=== PATIENT | male | born 1975 | race Caucasian/White ===

== ENCOUNTER 2018-04-30 14:22 | Observation (INO) | payer SELFPAY ==
[2018-04-30] MEDS ORDERED: NA CHLORIDE 0.9% 1,000 ML ONE (14:33)
[2018-04-30] MEDS ORDERED: TETANUS & DIPHTHERIA TOX,ADULT 0.5 ML VIAL ONE (14:33)
[2018-04-30] MEDS ORDERED: CEFAZOLIN/SWI 2gm 2 GM/20 ML SYR IVP ONE (14:45)
[2018-04-30 14:53] LABS: Absolute Lymphocytes (CBC) 4.1 K/uL (0.7-4.9); Absolute Neutrophil 6.8 K/uL (1.8-8.0); Basophils % 0.9 % (0-1.3); Eosinophils % 4.4 % (0-4.4); Hematocrit 42.6 % (39.6-49.0); Lymphocytes % 32.5 % (15.3-44.8); MCH 32.5 pg (27.0-35.0); MCV 94.1 fL (80-100); MPV 9.1 fL (7.6-11.3); Monocytes % 8.3 % (3.3-12.3); RBC Red Blood Cell Count 4.52 M/uL (4.33-5.43)
[2018-04-30 14:54] LABS: Protime INR 0.92
[2018-04-30 14:59] LABS: ALT/SGPT 41 U/L (12-78); AST/SGOT 26 U/L (15-37); Alkaline Phosphatase 78 U/L (45-117); BUN Blood Urea Nitrogen 26 mg/dL (7-18); Bicarbonate 25 mmol/L (21-32); Bilirubin Direct 0.1 mg/dL (0-0.2); Bilirubin Total 0.4 mg/dL (0.2-1.0); CKMB Creatine Kinase MB 1.3 ng/mL (0.3-3.6); Creatine Phosphokinase 117 U/L (39-308); Glucose Level 111 mg/dL (74-106); Magnesium 2.3 mg/dL (1.8-2.4); NT PRO-BNP 63 pg/mL (<125); Potassium 4.2 mmol/L (3.5-5.1); Protein, Total 7.4 g/dL (6.4-8.2); Sodium Level 141 mmol/L (136-145); Troponin (Emerg Dept Use Only) < 0.02 ng/mL (0.0-0.045)
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
--- NOTE | 2018-04-30 15:21 | RAD REPORT ---
EXAM DESCRIPTION: RAD - Shoulder Right 2 View - 04/30/2018 3:09 pm CLINICAL HISTORY: Right shoulder pain FINDINGS: No fracture or dislocation is seen.
--- NOTE | 2018-04-30 15:23 | RAD REPORT ---
EXAM DESCRIPTION: Carlo Single View04/30/2018 3:07 pm CLINICAL HISTORY: CHEST PAIN COMPARISON: none FINDINGS: The lungs appear clear of acute infiltrate. The heart is borderline enlarged IMPRESSION: No acute abnormalities displayed
--- NOTE | 2018-04-30 15:25 | RAD REPORT ---
EXAM DESCRIPTION: RAD - Femur Left - 04/30/2018 3:16 pm CLINICAL HISTORY: Left leg pain FINDINGS: . No fracture is seen.
[2018-04-30] MEDS ORDERED: ACETAMINOPHEN 500 MG TAB PO PRN (15:29)
[2018-04-30 16:10] LABS: Urine Blood 1+ (NEG); Urine Glucose NEGATIVE (NEG); Urine Protein NEGATIVE (NEG); Urine pH 5.5 (5.0-7.0)
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
[2018-04-30 16:14] LABS: Barbiturates NEGATIVE (NEGATIVE); Benzodiazepines NEGATIVE (NEGATIVE); Cocaine NEGATIVE (NEGATIVE); METHAMPHETAM NEGATIVE (NEGATIVE); Methadone NEGATIVE (NEGATIVE); Opiates NEGATIVE (NEGATIVE); Phencyclidine NEGATIVE (NEGATIVE); THC Cannibis NEGATIVE (NEGATIVE)
--- NOTE | 2018-04-30 17:15 | RAD REPORT ---
EXAM DESCRIPTION: RAD - Facial Bones <3 Views - 04/30/2018 5:03 pm CLINICAL HISTORY: check for any glass< facial pain FINDINGS: A 6 millimeter curvilinear density overlies the subcutaneous tissues of the right face. Th is is equivocal for a foreign body
[2018-04-30] MEDS: HYDROCODONE/APAP 5/325 MG TAB PO PRN ×2 (17:27→21:23)
[2018-04-30] MEDS: Ringers Lactate 1,000 ML IV SCH (17:27)
[2018-04-30 18:13] VITALS: BMI 35.5
[2018-04-30] MEDS ORDERED: clonazePAM 1 MG TAB PO ONE (22:23)
[2018-05-01 01:55] VITALS: O2SAT 95
[2018-05-01] MEDS: HYDROCODONE/APAP 5/325 MG TAB PO PRN ×2 (03:07→11:52)
[2018-05-01] MEDS: Ringers Lactate 1,000 ML IV SCH ×2 (03:10→08:00)
[2018-05-01] MEDS ORDERED: NICOTINE 14 MG/PAT TD SCH (09:00)
[2018-05-01] MEDS ORDERED: LORazepam 2 MG/ML VIAL IV ONE (09:11)
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
--- NOTE | 2018-05-01 12:22 | EKG ---
Test Date: 2018-04-30 Test Time: 15:44:42 Strickler Attendant: SP MEASUREMENT RESULTS: Intervals: Rate: 76 AL: 156 QRSD: 96 QT: 388 QTc: 436 [place]: P: 49 AL: 156 QRS: -7 T: 52 INTERPRETIVE STATEMENTS: Normal sinus rhythm Normal ECG Compared to ECG 03/09/2015 15:25:07 No significant changes Electronically Signed On 05-01-18 12:19:17 CDT by Xavier Valles
[2018-05-01 12:45] VITALS: BP 146/78; TEMP 98.3
== END 2018-05-01 14:50 | disposition home or self-care (01) ==
LOC: ER 14:22 → ERHOLD 15:31 → 4TH 16:34
PROVIDERS: ADMIT Surgery; ATTEND Surgery
PROC: 0JQ10ZZ Repair Face Subcutaneous Tissue and Fascia, Open Approach (ICD-10-PCS; principal; 2018-04-30)
DX: S01.81XA Laceration without foreign body of other part of head, initial encounter (principal); S06.0X0A Concussion without loss of consciousness, initial encounter; M25.511 Pain in right shoulder; M79.652 Pain in left thigh; V49.40XA Driver injured in collision with unspecified motor vehicles in traffic accident, initial encounter; Y92.410 Unspecified street and highway as the place of occurrence of the external cause; Z23 Encounter for immunization; Z88.0 Allergy status to penicillin
CPT/HCPCS: 36415; 70140; 70450; 70553; 71045; 71260; 72125; 72170; 74177; 80048; 80061; 80076; 80307; 80320; 81003; 82550; 82553; 83735; 83880; 84484; 85025; 85610; 85730; 86850; 86900; 86901; 90714; 93005; 96361; 96374; 99291; 99292; A9577; G0378; J0690; J7030; Q9967

== ENCOUNTER 2018-05-09 15:24 | Emergency (ER) | payer SELFPAY ==
--- NOTE | 2018-05-09 15:51 | ER ---
Nurse's Notes [facility] Name: Ray Hardy Age: 43 yrs Sex: Male : 1975 Arrival Date: 05/09/2018 Time: 15:27 Bed 12 Private MD: Victorino Chavez T Diagnosis: Encounter for removal of sutures Presentation: 05/09 15:46 Presenting complaint: Patient states: suture removal, placed on 04/30/18. Transition of sv care: patient was not received from another setting of care. Onset of symptoms was April 30, 2018. Risk Assessment: Do you want to hurt yourself or someone else? Patient reports no desire to harm self or others. Initial Sepsis Screen: Does the patient meet any 2 criteria? No. Patient's initial sepsis screen is negative. Does the patient have a suspected source of infection? No. Patient's initial sepsis screen is negative. Care prior to arrival: None. 15:46 Method Of Arrival: Ambulatory sv 15:46 Acuity: DEEPALI 5 sv Triage Assessment: 15:47 General: Appears in no apparent distress. comfortable, well developed, Behavior is sv calm, cooperative, appropriate for age. Pain: Denies pain. EENT: No signs and/or symptoms were reported regarding the EENT system. Neuro: Level of Consciousness is awake, alert, obeys commands, Oriented to person, place, time, situation, Moves all extremities. Full function Gait is steady, Speech is normal. Respiratory: Respiratory effort is even, unlabored, Respiratory pattern is regular, symmetrical. Derm: Skin is pink, warm \T\ dry. Injury Description: Laceration sustained to right forehead is 0.5 to 2.5 cm long, not bleeding, was sustained 04/30/18 no active bleeding noted at this time. Historical: - Allergies: 15:47 Amoxicillin; sv - PMHx: 15:47 Anxiety; Depression; sv - PSHx: 15:47 left wrist; left foot; sv - Immunization history:: Adult Immunizations up to date. - Social history:: Smoking status: Patient uses tobacco products, smokes one-half pack cigarettes per day. - Ebola Screening: : No symptoms or risks identified at this time. Screenin:48 Abuse screen: Denies threats or abuse. Denies injuries from another. Nutritional sv screening: No deficits noted. Tuberculosis screening: No symptoms or risk factors identified. Fall Risk None identified. Assessment: 15:48 Reassessment: Patient appears in no apparent distress at this time. No changes from previously documented assessment. Patient and/or family updated on plan of care and expected duration. Pain level reassessed. Patient is alert, oriented x 3, equal unlabored respirations, skin warm/dry/pink. Vital Signs: 15:47 BP 130 / 78; Pulse 89; Resp 18; Temp 98.2; Pulse Ox 99% ; sv ED Course: 15:27 Patient arrived in ED. sb2 15:27 Victorino Chavez MD is Private Physician. sb2 15:42 Miladis Zeng FNP-C is [facility]. kb 15:42 Nhung Rooney MD is Attending Physician. kb 15:46 Triage completed. sv 15:47 Arm band placed on right wrist. sv 15:48 Patient has correct armband on for positive identification. sv 15:48 Patient did not have IV access during this emergency room visit. sv 15:49 Suture removal. sv Administered Medications: No medications were administered Outcome: 15:49 Discharged to home ambulatory, with family. sv 15:49 Condition: stable 15:49 No charge visit due to suture removal. 15:51 Discharge ordered by MD. kb 16:03 Patient left the ED. Signatures: Miladis Zeng FNP-C FNP-Ckb Verde, Stephanie, RN RN Nataliya Jackson RN RN Ramila Sahni sb2
--- NOTE | 2018-05-09 15:51 | EDPHYS ---
Physician Documentation [facility] Name: Ray Hardy Age: 43 yrs Sex: Male : 1975 Arrival Date: 05/09/2018 Time: 15:27 Bed 12 Private MD: Victorino Chavez T ED Physician Nhung Rooney HPI: 05/09 15:52 This 43 yrs old Male presents to ER via Ambulatory with complaints of Suture kb Removal. 15:52 The patient has sutures on the right buddhist and top of head. Previous treatment: The kb patient was initially treated on April 29, 2018, the care was rendered at [facility]. Sutures/velma progress: The patient has no c/o's. The wound is well-healing with no redness, swelling, discharge, or dehiscence reported. The patient has not experienced similar symptoms in the past. The patient has been recently seen at the [facility] Emergency Department, a couple of weeks ago. Historical: - Allergies: 15:47 Amoxicillin; sv - PMHx: 15:47 Anxiety; Depression; sv - PSHx: 15:47 left wrist; left foot; sv - Immunization history:: Adult Immunizations up to date. - Social history:: Smoking status: Patient uses tobacco products, smokes one-half pack cigarettes per day. - Ebola Screening: : No symptoms or risks identified at this time. ROS: 15:51 Constitutional: Negative for fever, chills, and weight loss, Cardiovascular: Negative kb for chest pain, palpitations, and edema, Respiratory: Negative for shortness of breath, cough, wheezing, and pleuritic chest pain, Abdomen/GI: Negative for abdominal pain, nausea, vomiting, diarrhea, and constipation, Back: Negative for injury and pain, : Negative for injury, bleeding, discharge, and swelling, MS/Extremity: Negative for injury and deformity, Neuro: Negative for headache, weakness, numbness, tingling, and seizure. 15:51 Skin: Positive for of the right buddhist and top of head, sutures in place. Exam: 15:51 Constitutional: This is a well developed, well nourished patient who is awake, alert, kb and in no acute distress. Head/Face: Normocephalic, atraumatic. Chest/axilla: Normal chest wall appearance and motion. Nontender with no deformity. No lesions are appreciated. Cardiovascular: Regular rate and rhythm with a normal S1 and S2. No gallops, murmurs, or rubs. Normal PMI, no JVD. No pulse deficits. Respiratory: Lungs have equal breath sounds bilaterally, clear to auscultation and percussion. No rales, rhonchi or wheezes noted. No increased work of breathing, no retractions or nasal flaring. Abdomen/GI: Soft, non-tender, with normal bowel sounds. No distension or tympany. No guarding or rebound. No evidence of tenderness throughout. MS/ Extremity: Pulses equal, no cyanosis. Neurovascular intact. Full, normal range of motion. Neuro: Awake and alert, GCS 15, oriented to person, place, time, and situation. Cranial nerves II-XII grossly intact. Motor strength 5/5 in all extremities. Sensory grossly intact. Cerebellar exam normal. Normal gait. 15:51 Skin: Wound recheck: Suture laceration closure: the wound is healing well, the edges are well approximated, no evidence of dehiscence, no drainage, no erythema, no swelling. Vital Signs: 15:47 BP 130 / 78; Pulse 89; Resp 18; Temp 98.2; Pulse Ox 99% ; sv Procedures: 15:50 Suture/Staple removal: Removed 10 sutures, from top of head and right buddhist, site kb appears well healed, Patient tolerated well. MDM: 15:50 Patient medically screened. kb 15:50 Data reviewed: vital signs, nurses notes. Data interpreted: Pulse oximetry: on room air kb is 99 %. Interpretation: normal. Counseling: I had a detailed discussion with the patient and/or guardian regarding: the historical points, exam findings, and any diagnostic results supporting the discharge/admit diagnosis, the need for outpatient follow up, a family practitioner, to return to the emergency department if symptoms worsen or persist or if there are any questions or concerns that arise at home. Administered Medications: No medications were administered Disposition: 18:47 Co-signature as Attending Physician, Nhung Rooney MD. ma2 Disposition: 05/09/18 15:51 Discharged to Home. Impression: Encounter for removal of sutures. - Condition is Stable. - Discharge Instructions: Suture Removal, Care After. - Medication Reconciliation Form, Thank You Letter, Antibiotic Education, Prescription Opioid Use form. - Follow up: Emergency Department; When: As needed; Reason: Worsening of condition. Follow up: Private Physician; When: 2 - 3 days; Reason: Recheck today's complaints, Continuance of care, Re-evaluation by your physician. Signatures: Miladis Zeng, HILL MARTINEZ-Brittany Blankenship, RN RN Nataliya Jackson RN RN ss Alzahri, Mohammad, MD MD ma2 Corrections: (The following items were deleted from the chart) 16:03 15:51 05/09/2018 15:51 Discharged to Home. Impression: Encounter for removal of ss sutures. Condition is Stable. Forms are Medication Reconciliation Form, Thank You Letter, Antibiotic Education, Prescription Opioid Use. Follow up: Emergency Department; When: As needed; Reason: Worsening of condition. Follow up: Private Physician; When: 2 - 3 days; Reason: Recheck today's complaints, Continuance of care, Re-evaluation by your physician. kb
[2018-05-09 16:09] VITALS: BP 130/78; TEMP 98.2; O2SAT 99
== END 2018-05-09 16:03 | disposition home or self-care (01) ==
LOC: ER 15:24
DX: Z48.02 Encounter for removal of sutures (principal)